=== PATIENT | male | born 1990 | race Caucasian/White ===

== ENCOUNTER 2019-03-09 16:33 | Emergency (ER) | payer OTHER, SELFPAY ==
[2019-03-09 16:34] VITALS: BP 158/98; PULSE 95; RESP 18; TEMP 37.3; O2SAT 99; BMI 31.7
--- NOTE | 2019-03-09 18:14 | ED.DCSUM_ITS ---
- ER Visit Summary Date of Service: 03/09/19 Chief Complaint: Back pain History of Present Illness: The patient is a 28 M with back pain. Symptoms started about a week ago when he was lifting something. They seem to get better, and then earlier today, he was lifting again. He has pain in his left mid back. It does not radiate. No chest pain or shortness of breath. No GI or symptoms. No weakness or numbness. No bowel or bladder issues. No saddle anesthesias. No history of bone disease. No traumas. No history of back surgery or immune compromise. Physical Examination: Vitals unremarkable. Patient has normal inspection to his back. He has left paraspinal muscle tenderness to palpation. No crepitus or other skin abnormalities. Lungs are clear. Heart is regular. The remainder of his exam is unremarkable. Test Results: None indicated Emergency Department Course and Treatment: Patient has myofascial back pain. Motrin, Flexeril as needed, work note, follow-up with primary care. Treatment Plan: As above Disposition: Discharge Impression: 1. Left thoracic strain This note was generated with [employer] dictation software. It may contain incorrect words, spelling, and punctuation that were not noted in review of the chart prior to signing ED Disposition - Plan for ED Patient: Referrals: Robert Ghosh, [facility] [Primary Care Provider] -
--- NOTE | 2019-03-09 18:15 | ED.DEP ---
ED Disposition - Plan for ED Patient: Instructions: Back Sprain/Strain Prescriptions: cycloBENZAPRine HCl [Flexeril] 10 mg PO TID PRN #20 tab PRN Reason: Muscle Spasm Prescription Printed Ibuprofen [Motrin] 800 mg PO TID PRN PRN #20 tab PRN Reason: Pain Or Fever Prescription Printed Referrals: Robert Ghosh, [facility] [Primary Care Provider] -
[2019-03-09] MEDS: Ibuprofen 400 MG Tablet 800 MG PO (18:37)
== END 2019-03-09 18:43 | disposition home or self-care (01) ==
LOC: ED 18:08
PROVIDERS: Emergency Provider Emergency Medicine; Family Provider Nurse Practitioner Family; PCP Nurse Practitioner Family
DX: S29.012A Strain of muscle and tendon of back wall of thorax, initial encounter (principal); X50.9XXA Other and unspecified overexertion or strenuous movements or postures, initial encounter; Y93.9 Activity, unspecified; Y92.9 Unspecified place or not applicable; Y99.9 Unspecified external cause status; I10 Essential (primary) hypertension; Z72.0 Tobacco use; Z79.899 Other long term (current) drug therapy
CPT/HCPCS: 99283

== ENCOUNTER 2019-11-27 12:38 | Emergency (ER) | payer OTHER, SELFPAY ==
[2019-11-27 12:39] VITALS: BP 131/95; PULSE 78; RESP 20; TEMP 36.7; O2SAT 97; BMI 34.8
--- NOTE | 2019-11-27 12:48 | RAD_ITS ---
STUDY: X-RAY - RIGHT ANKLE REASON FOR EXAM: Male, 28 years old. JUMPED OUT OF THE BACK OF A VAN TECHNIQUE: 3 view(s) of the ankle. COMPARISON: None. FINDINGS: Normal visualized distal tibia and fibula. Normal medial and lateral malleoli. Normal tibiotalar articulation and ankle mortise. Normal visualized talus and calcaneus. The visualized subtalar, talonavicular, calcaneocuboid and tarsal articulations are normal. Soft tissue swelling worse overlying the lateral malleolus. RAD/Ankle min 3 Views IMPRESSION: Soft tissue swelling. Electronically Signed: Jon Teresa, at 13:21 EDT , Service support ,
--- NOTE | 2019-11-27 12:48 | RAD_ITS ---
STUDY: X-RAY - LEFT ANKLE REASON FOR EXAM: Male, 28 years old. JUMPED OUT OF THE BACK OF A VAN TECHNIQUE: 3 view(s) of the ankle. COMPARISON: None. FINDINGS: Normal visualized distal tibia and fibula. Normal medial and lateral malleoli. Normal tibiotalar articulation and ankle mortise. Normal visualized talus and calcaneus. The visualized subtalar, talonavicular, calcaneocuboid and tarsal articulations are normal. The soft tissue structures are unremarkable. RAD/Ankle min 3 Views IMPRESSION: Normal x-ray examination of the ankle. Electronically Signed: Jon Teresa, at 13:22 EDT , Service support ,
--- NOTE | 2019-11-27 12:49 | ED.VIS.GEN ---
History of Present Illness Chief Complaint: Lower Extremity Injury Informant: Patient Onset: Today Narrative: Jumped out of the back of the work van landed sustaining injuries to bilateral ankles. States the right ankle and foot went down but then feeling came back. He took his boot off and did not appreciate any swelling. He continues to be painful to walk. He has some discomfort of the left ankle as well he denies any other injuries. 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 Denies: Back pain Skin: Denies: Rash, Wounds Neurological: Denies: Headache, Weakness, Numbness Physical Exam Vital Signs/Narrative: Vital Signs Temp Pulse Resp BP Pulse Ox 11/27/19 12:39 98.1 F 78 20 H 131/95 H 97 Inital Vital Signs reviewed: Yes General: Well nourished, Well developed, No Acute Distress Head: Normocephalic, Atraumatic Eyes: Perrl, EOMI ENT: Moist mucous membranes, No rhinorrhea Neck: Supple, Nontender Cardiovascular: Regular rate, Regular rhythm, No murmurs Respiratory: No distress, CTA bilaterally, Chest nontender Abdomen: Soft, Nontender, Nondistended, Normal bowel sounds Back: Nontender, Normal Inspection Extremities: No edema, - - Patient has swelling over the right lateral malleolus and tenderness both medial and lateral. Achilles intact. No fifth metatarsal pain. No fibular head pain. Left ankle I do not see any significant swelling. He has mild diffuse tenderness. No fifth metatarsal or fibular head pain. Skin: Normal color, No rash Neurological: Alert, Oriented x3, Cranial nerves II-XII grossly intact, Normal Strength, Normal Sensation Psychological: Normal affect, Normal Mood Diagnostic/Tx/Re-eval Clinical Impression(s) from Imaging Studies Ankle X-Ray 11/27/19 12:48 IMPRESSION: Soft tissue swelling. Electronically Signed: Jon Teresa, at 13:21 EDT , Service support , Ankle X-Ray 11/27/19 12:48 IMPRESSION: Normal x-ray examination of the ankle. Electronically Signed: Jon Teresa, at 13:22 EDT , Service support , - Medical Decision Making Patient would like to use a Jarad wrap. Ricem therapy. follow-up with [facility]. ED Disposition - Plan for ED Patient: Disposition: Home or Assisted Living Diagnosis: Left ankle sprain, Right ankle sprain Instructions: ED Sprain Ankle W X Ray Referrals: [facility] [NON-STAFF] - 1 Week
--- NOTE | 2019-11-27 12:52 | ED.RN ---
THIS NURSE SPOKE WITH DK FROM [facility] [phone]. NO TESTING NEEDED
== END 2019-11-27 14:07 | disposition home or self-care (01) ==
PROVIDERS: Emergency Provider Emergency Medicine; PCP Nurse Practitioner Family
DX: S93.401A Sprain of unspecified ligament of right ankle, initial encounter (principal); S93.402A Sprain of unspecified ligament of left ankle, initial encounter; M79.89 Other specified soft tissue disorders; W13.8XXA Fall from, out of or through other building or structure, initial encounter; Y93.9 Activity, unspecified; Y92.818 Other transport vehicle as the place of occurrence of the external cause; Y99.0 Civilian activity done for income or pay; Z79.899 Other long term (current) drug therapy
CPT/HCPCS: 73610; 99282

== ENCOUNTER → 2024-05-02 | Outpatient (CLI) | payer OTHER, SELFPAY ==
[2024-05-02 08:48] LABS: AST(SGOT) 25 U/L (15-37); Alanine Aminotransfer ALT/SGPT 42 U/L (16-61); Cholesterol 182 mg/dL (200); High Density Lipoprotein 40 mg/dL; Triglycerides 250 mg/dL; Very Low Density Lipoprotein 50 mg/dL (5-40)
== END | disposition home or self-care (01) ==
LOC: LAB 08:06
PROVIDERS: PCP Nurse Practitioner Family; Referring Provider Dermatology; Visit Provider Dermatology
DX: L70.0 Acne vulgaris (principal); Z79.899 Other long term (current) drug therapy